=== PATIENT | male | born 1965 | race Caucasian/White ===

== ENCOUNTER 2024-11-14 07:39 | Outpatient (CLI) | payer BC, SELFPAY ==
--- NOTE | ~2024-11-14 | NM_ITS ---
EXAMINATION: NM armida stress w perfusion DATE: 11/14/2024 11:01 INDICATION: Unspecified atrial fibrillation TECHNIQUE: Rest images were obtained following intravenous administration of 11.5 mCi Tc99m tetrofosm in (Myoview). The patient was infused intravenously with Lexiscan (Regadenoson). Then, 33.7 mCi Tc99m tetrofosmin (Myoview) was administered intravenously, and stress images were obtained initially in t he supine position with repeat post stress images obtained in the prone position. Data was reconstruc peace into short axis and horizontal and vertical long axis SPECT images. Gated SPECT images were also obtained. COMPARISON: None. FINDINGS: There is a small to moderate-sized moderate severity nonreversible perfusion defect involvi ng the mid inferior and basilar inferior segments consistent with infarct. No reversible ischemia. T here is normal left ventricular chamber size, wall motion and ejection fraction. Left ventricular ej ection fraction measures 70%. IMPRESSION: 1. Small fixed perfusion defect consistent with infarct at the mid inferior and basilar inferior segm ents. No reversible ischemia. 2. Left ventricular ejection fraction measuring 70%. Reviewed, dictated and finalized at location A. IMPRESSION: 1. Small fixed perfusion defect consistent with infarct at the mid inferior and basilar inferior segments. No reversible ischemia. 2. Left ventricular ejection fraction measuring 70%.
--- OUTSIDE RECORDS SUMMARY | 2024-11-14 07:41 | XMS_ITS | Clinical Summary ---
Author Organization [facility] Address [address] [place] [id number] Care Team Providers Care Integrated Marketing Intern Name Role Phone Ramiro Fernandez MD Primary Care Provider [phone] Social History Tobacco Use Types Packs/Day Years Used Date Smoking Tobacco: Never Assessed Sex and Gender Information Value Date Recorded Sex Assigned at Not on file Legal Sex Male 7:34 PM CDT Gender Identity Not on file Sexual Orientation Not on file Last Filed Vital Signs Vital Sign Reading Time Taken Comments Blood Pressure 124/78 06/20/2012 3:35 PM GROUNDS CARETAKER Pulse 60 06/20/2012 3:35 PM GROUNDS CARETAKER Temperature - - Respiratory Rate - - Oxygen Saturation - - Inhaled Oxygen Concentration - - Weight 97.5 kg (215 lb) 06/20/2012 3:35 PM GROUNDS CARETAKER Height 185.4 cm (6' 1 ) 06/20/2012 3:35 PM GROUNDS CARETAKER Body Mass Index 28.37 06/20/2012 3:35 PM GROUNDS CARETAKER Plan of Treatment Health Maintenance Due Date Last Done Comments Colorectal Cancer Screening Colonoscopy (10 Years) 1965 Annual Physical 1966 Hepatitis C 1981 Zoster Vaccines (1 of 2) 2013 DTaP, Tdap and Td Vaccines ( 2 - Td or Tdap) 06/20/2022 06/20/2012 COVID-19 Vaccine (2 - 2023-2 5 season) 2024 10/24/2020 Influenza Adult (#1) 2024 06/20/2012 RSV Immunization or 60+ Years (1 - 1-dose 75+ series) 2038 Meningococcal B Vaccine Aged Out No l onger eligible based on patient's age to complete this topic Meningococcal Vaccine Aged Out No sarah naldo eligible based on patient's age to complete this topic Pneumococcal Vaccine: Pediat rics (0 to 5 Years) and At-Risk Patients (6 to 64 Years) Aged Out No longer eligi ble based on patient's age to complete this topic RSV Immunizations Under 20 Months Aged Out No longer eligible based on patient's age to complete this topic Insurance [facility] Care Teams Integrated Marketing Intern Relationship Specialty Start Date End Date Ramiro Fernandez MD [address] [place] [id number] PCP - General INTERNAL MEDICINE 08/18/21
--- OUTSIDE RECORDS SUMMARY | 2024-11-14 07:42 | XMS_ITS | Referral Summary ---
Author Organization [facility] Address [address] [place] [address] Care Team Providers Care Endoscopy Specialty Technician Name Role Phone Ramiro Fernandez MD Primary Care Provider [phone] Allergies Active Allergy Reactions Criticality Noted Date Comments Codeine Nausea only Low 07/28/2018 Medications VENTOLIN HFA 90 mcg/actuation inhaler as needed. 2 06/29/2018 Active mometasone-form oterol (DULERA 100) 100-5 mcg/actuation inhaler daily. Active esomeprazole DR (NexIUM) 20 mg capsule Take 20 mg by mouth daily. Active vit B comp no.[id number] otin 1-60-300 mg-mg-mcg tabletIndicatio ns:Vitamin Deficiency Prevention 1 tablet daily. Active multivit with minerals/lutein (MULTIVITAMIN 50 PLUS ORAL) Take by mouth Ac tive dilTIAZem (CARDIZEM) 30 mg tablet Take 1 tablet (30 mg total) by mouth 4 (four) times a day as needed (for elevated heart rates) 30 tablet 11 09/29/2022 Active aspirin 81 mg enteric coated tablet Take 81 mg by mouth daily Active dilTIAZem CD/XR/XT (dilTIAZem XR) 120 mg 24 hr capsule Take 1 capsule (120 mg total) by mouth daily 90 capsule 01/12/2023 Active Active Problems Problem Noted Date Diagnosed Date Persistent atrial fibrillation 09/29/2022 Atrial flutter 01/02/2016 Fatigue 01/02/2016 Palpitations 01/02/2016 Social History Tobacco Use Types Packs/Day Years Used Date Smoking Tobacco: Never Smokeless Tobacco: Current Chew Tobacco Cessation:Ready to Q uit: Not Asked; Counseling Given: Not Answered Personal Safety Answer Date Recorded Getting School Help Needed Not on file 10/18 Sex and Gender Information Value Date Recorded Sex Assigned at Not on file Legal Sex Male 8:22 AM COMEDIAN Gender Identity Not on file Sexual Orientation Not on file Last Filed Vital Signs Vital Sign Reading Time Taken Comments Blood Pressure 159/126 09/29/2022 10:33 AM COMEDIAN Pulse 81 09/29/2022 10:33 AM COMEDIAN Temperature 36.7 C (98 F) 11/03/2018 8:09 AM CDT Respiratory Rate - - Oxygen Saturation 98% 09/29/2022 10: 33 AM COMEDIAN Inhaled Oxygen Concentration - - Weight 110.1 kg (242 lb 12.8 oz) 2022 10:33 AM COMEDIAN Height 185.4 cm (6' 1 ) 09/29/2022 10:3 3 AM COMEDIAN Body Mass Index 32.03 09/29/2022 10:33 AM COMEDIAN Plan of Treatment Not on file Insurance [facility] ACC[facility] CHOICE Care Teams Endoscopy Specialty Technician Relationship Specialty Start Date End Date Ramiro Fernandez MD [address] [place] [id number] PCP - General 05/19/17
--- OUTSIDE RECORDS SUMMARY | 2024-11-14 07:42 | XMS_ITS | Clinical Summary ---
Author Organization [facility] Address [address] [place] [address] Care Team Providers Care Leg Man Name Role Phone Ramiro Fernandez MD Primary Care Provider [phone] Source Comments [facility],non-owned Affiliates and Associated Physician Practices is amultiple site organization consisting of ambulatory clinics and hospital sitesin [place], [place], [place] and [place]. This disclosure is being madepursuant to the Care Everywhere program and may not contain all information available regarding this patient. 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 08/26/2015 Diplopia 08/26/2015 Family History Medical History Relation Name Comments Strabismus Daughter Cancer Maternal Grandmother bone ca ncer Diabetes Mother Cancer Paternal Grandmother lung ca ncer Blindness Neg Hx Brain Tumor Neg Hx CVA Neg Hx Glaucoma Neg Hx Heart Disease Neg Hx Hypertension Neg Hx Retinal Detachment Neg Hx Relation Name Status Comments Daughter Maternal Grandmother Mother Paternal Grandmother Social History Tobacco Use Types Packs/Day Years Used Date Smoking Tobacco: Never Alcohol Use Standard Drinks/Week Comments Yes 0.8 (1 standard drink = 0.6 oz p ure alcohol) Sex and Gender Information Value Date Recorded Sex Assigned at Not on file Gender Identity Not on file Sexual Orientation Not on file Last Filed Vital Signs Vital Sign Reading Time Taken Comments Blood Pressure 140/86 10/29/2015 2:55 PM CDT Pulse 61 10/29/2015 2:55 PM CDT Temperature 36.6 C (97.9 F) 10/29/2015 2:55 PM CDT Respiratory Rate 16 10/29/2015 2:55 PM CDT Oxygen Saturation 95% 10/29/2015 2:55 PM CDT Inhaled Oxygen Concentration - - Weight 98.4 kg (217 lb) 10/29/2015 10:36 AM CDT Height 185.4 cm (6' 1 ) 10/29/2015 10:36 AM CDT Body Mass Index 28.63 10/29/2015 10:36 AM CDT Plan of Treatment Health Maintenance Due Date Last Done Comments COLOGUARD (AGES 45-75) - COL ON CA SCREENING 1963 COLON MONITORING 1963 COLONOSCOPY - COLON CA SCREENING 1963 CT COLONOGRAPHY - COLON CA SCREENING 1965 Colorectal Cancer Screening 1963 FIT - COLON CA SCREENING 1963 FLEX SIG - COLON CA SCREENING 1963 LIPID TESTING 1963 HIV SCREENING 1978 HEPATITIS C SCREENING 09/04/1981 DTAP/TDAP/TD VACCINES (1 - Tdap) 1982 PNEUMOCOCCAL VACCINE 50+ (1 of 1 - PCV) 2013 ZOSTER VACCINE (1 of 2) 2013 COVID-19 VACCINE (1 - 2023-2 5 season) 2024 INFLUENZA VACCINE (#1) 2024 DEPRESSION SCREENING 08/16/2024 Respiratory Syncytial Virus (RSV) Vaccine Pt: or over 60 yrs (1 - 1-dose 75+ series) 2038 HEPATITIS B VACCINE Aged Out No longe r eligible based on patient's age to complete this topic HIB VACCINE Aged Out No longer eligi ble based on patient's age to complete this topic HPV VACCINE Aged Out No longer eligi ble based on patient's age to complete this topic MENINGOCOCCAL (Group B) VACC INE SHARED DECISION-MAKING Aged Out No longer eligibl e based on patient's age to complete this topic MENINGOCOCCAL GROUPS A/C/Y/W VACCINE Aged Out No longer eligible b ased on patient's age to complete this topic PNEUMOCOCCAL VACCINE Aged Out No long er eligible based on patient's age to complete this topic Care Teams Leg Man Relationship Specialty Start Date End Date Ramiro Fernandez MD [address] [place] [address] [place] [id number] PCP - General 06/10/15
--- OUTSIDE RECORDS SUMMARY | 2024-11-14 07:42 | XMS_ITS | Clinical Summary ---
Author Organization [facility] Address [address] [place] [id number] Care Team Providers Care Switchgear Repairer Name Role Phone Ramiro Fernandez MD Primary Care Provider [phone] Allergies Active Allergy Reactions Criticality Noted Date Comments Codeine Nausea only Low 07/28/2018 Medications VENTOLIN HFA 90 mcg/actuation inhaler as needed. 2 06/29/2018 Active mometasone-form oterol (DULERA 100) 100-5 mcg/actuation inhaler daily. Active esomeprazole DR (NexIUM) 20 mg capsule Take 20 mg by mouth daily. Active vit B comp no.[id number] otin 1-60-300 mg-mg-mcg tabletIndicatio ns:Vitamin Deficiency Prevention [...] Atrial flutter 01/02/2016 Fatigue 01/02/2016 Palpitations 01/02/2016 Family History Medical History Relation Name Comments No Known Problems Father No Known Problems Mother Heart failure Paternal Grandfather Relation Name Status Comments Father Mother Paternal Grandfather Social History Tobacco Use Types Packs/Day Years Used Date Smoking Tobacco: Never Smokeless Tobacco: Current Chew Tobacco Cessation:Ready to Q uit: Not Asked; Counseling Given: Not Answered Personal Safety Answer Date Recorded Getting School Help Needed Not on file 10/18 Sex and Gender Information Value Date Recorded Sex Assigned at Not on file Legal 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 Gender Identity Not on file Sexual Orientation Not on file Obstetrics History Last Filed Vital Signs Vital Sign Reading Time Taken Comments Blood Pressure 159/126 09/29/2022 10:33 AM STUD DAIRY CATTLE FARMER Pulse 81 09/29/2022 10:33 AM STUD DAIRY CATTLE FARMER Temperature 36.7 C (98 F) 11/03/2018 8:09 AM CDT Respiratory Rate - - Oxygen Saturation 98% 09/29/2022 10: 33 AM STUD DAIRY CATTLE FARMER Inhaled Oxygen Concentration - - Weight 110.1 kg (242 lb 12.8 oz) 2022 10:33 AM STUD DAIRY CATTLE FARMER Height 185.4 cm (6' 1 ) 09/29/2022 10:3 3 AM STUD DAIRY CATTLE FARMER Body Mass Index 32.03 09/29/2022 10:33 AM STUD DAIRY CATTLE FARMER Plan of Treatment Health Maintenance Due Date Last Done Comments Colon Cancer Screening-Colonoscopy 1963 Depression Screening 1963 Hepatitis C Screening 1963 Prostate Cancer Screening-PSA 1963 DTaP/Tdap/Td Vaccine (1 - Tdap) 1974 Hepatitis B Screening 1981 Regular Well Visit/Exam 18-64 1981 Zoster Vaccine (1 of 2) 2013 Covid-19 Vaccine (2 - 2023-2 5 season) 2024 10/24/2020 Influenza Vaccine (#1) 2024 Pneumococcal vaccine <65 Aged Out No longer eligible based on patient's age to complete this topic Insurance [facility] ACCESS CHOICE Member Subscriber Plan / Payer (Ef fective 2021-Present) Name:Tl Mendiola Relation to Subscriber:Self Name:Tl Mendiola Payer ID:[id number] (NAIC) Type: [employer]IANCE Address: [facility] [id number] [place] [id number] Care Teams Switchgear Repairer Relationship Specialty Start Date End Date Ramiro Fernandez MD [address] [place] [id number] PCP - General 05/19/17
--- OUTSIDE RECORDS SUMMARY | 2024-11-14 07:42 | XMS_ITS | Encounter Summary ---
Author Organization [facility] Address [address] [place] [address] Phone Care Team Providers Care Recreation Therapy Director Name Role Phone Ramiro Fernandez MD Primary Care Provider [phone] Encounter Details Date Type Department Care Team (Late st Contact Info) Description 07/28/2018 Telephone 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
--- NOTE | 2024-11-14 07:47 | ECHO_ITS ---
Patient Info Name: Tl Mendiola Age: 59 years : 1965 Gender: Male Ht: 73 in Wt: 240 lbs BSA: 2.40 m2 HR: 75 bpm BP: 159 / 110 mmHg Heart Rhythm: Atrial Fibrillation Technical Quality: Fair Exam Date: 11/14/2024 8:01 AM Exam Location: Echo Lab Patient Status: Outpatient Admit Date: 11/14/2024 Staff Ordering Physician: Julio Vigil DO Sorter Upholstery Parts: Adair Stevenson Attending Provider: Julio Vigil DO Referring Physician: Musa HATFIELD; Exam Type: CA echo doppler color flow Study Info Indications - Afib Complete two-dimensional, color flow and Doppler transthoracic echocardiogram is performed. Summary 1. Complete two-dimensional, color flow and Doppler transthoracic echocardiogram is performed. 2. Left ventricular chamber dimension is normal. 3. Left ventricular systolic function is normal, estimated at 60-65%. 4. The left ventricular diastolic function is normal. 5. E/e' 6 is not elevated. 6. Atrial fibrillation. 7. Left atrial chamber dimension is severely enlarged. 8. Right atrial chamber dimension is mildly enlarged. 9. There is mild aortic valve sclerosis. 10. There is trace mitral valve regurgitation. 11. No pulmonary hypertension, estimated pulmonary arterial systolic pressure is 26 mmHg. Left Ventricle E/e' 6 is not elevated. Atrial fibrillation. Left ventricular chamber dimension is normal. Left ventricular systolic function is normal, estimated at 60-65%. The left ventricular diastolic function is normal. Right Ventricle Right ventricular systolic function is normal and with normal TAPSE 2.0 cm. Right ventricular chamber dimension is normal. Left Atria Left atrial chamber dimension is severely enlarged. Right Atria Right atrial chamber dimension is mildly enlarged. Aortic Valve The aortic valve is trileaflet. There is mild aortic valve sclerosis. There is no aortic valve stenosis. There is no aortic valve regurgitation. Pulmonic Valve There is no pulmonic regurgitation. Mitral Valve There is no mitral valve stenosis. There is trace mitral valve regurgitation. Tricuspid Valve There is no tricuspid valve regurgitation. No pulmonary hypertension, estimated pulmonary arterial systolic pressure is 26 mmHg. Pericardium/Pleural There is no pericardial effusion. Inferior Vena Cava Normal inferior vena cava with >50% collapse upon inspiration consistent with normal right atrial pressure, 5 mmHg. Aorta The aortic root size at the sinus of Valsalva is normal. Left Ventricular Outflow Tract Name Value Normal LVOT 2D LVOT Diameter 2.0 cm LVOT Doppler LVOT Peak Gradient 2 mmHg LVOT Mean Gradient 1 mmHg LVOT VTI 15 cm LVOT VTI/AV VTI Ratio 0.8 LVOT Stroke Volume 48 ml LVOT CO 3.3 l/min LVOT CI 1.4 l/min/m2 Pulmonic Valve Name Value Normal RVOT Doppler RVOT Peak Gradient 1 mmHg PV Doppler PV Peak Gradient 3 mmHg Mitral Valve Name Value Normal MV Doppler MV Decel Becker 252 cm/s2 MV PHT 79 ms MV Area (PHT) 2.8 cm2 4.0-5.0 MV Diastolic Function MV E Peak Velocity 68 cm/s MV A Peak Velocity 1 cm/s MV E/A 51.7 MV Decel Time 272 ms MV Annular TDI MV E/e' (Septal) 5.5 <=8.0 MV E/e' (Lateral) 6.9 <=8.0 MV E/e' (Average) 6.2 Tricuspid Valve Name Value Normal TV Regurgitation Doppler TR Peak Velocity 227 cm/s TR Peak Gradient 18 mmHg Estimated PAP/RSVP RA Pressure 5 mmHg <=5 PA Systolic Pressure 26 mmHg <36 RV Systolic Pressure 26 mmHg <36 Aorta Name Value Normal Ascending Aorta Ao Root Diameter (MM) 3.7 cm Ao Root Diam Index (MM) 1.6 cm/m2 Aortic Valve Name Value Normal AV Doppler AV Peak Velocity 99 cm/s AV Peak Gradient 3 mmHg AV Mean Gradient 2 mmHg AV VTI 18 cm AV Area (Cont Eq VTI) 2.6 cm2 >=3.0 AV Area (Cont Eq Shaun) 2.7 cm2 AV Regurgitation 2D LVOT Area 3.1 cm2 Ventricles Name Value Normal LV Dimensions 2D/MM IVS Diastolic Thickness (2D) 1.1 cm 0.6-1.0 LVID Diastole (2D) 5.4 cm 4.2-5.8 LVIW Diastolic Thickness (2D) 1.1 cm 0.6-1.0 LVID Systole (2D) 3.2 cm 2.5-4.0 LVOT Diameter 2.0 cm LV Mass (2D Cubed) 235.82 g 88.00-224.00 LV Mass Index (2D Cubed) 98 g/m2 49-115 Relative Wall Thickness (2D) 0.42 LV Fractional Shortening/Ejection Fraction 2D/MM LV Fractional Shortening (2D) 40 % 25-43 LV EF (2D Teicholz) 70 % 52-72 LV Diastolic Volume (4C MOD) 103 ml LV EF (4C MOD) 61 % LV Diastolic Volume (2C MOD) 114 ml LV EF (2C MOD) 61 % LV Diastolic Volume (BP MOD) 109 ml 62-150 LV Diastolic Volume Index (BP MOD) 45 ml/m2 34-74 LV Systolic Volume (BP MOD) 43 ml 21-61 LV Systolic Volume Index (BP MOD) 18 ml/m2 11-31 LV EF (BP MOD) 61 % 52-72 LV Diastolic Length (4C) 8.4 cm LV Systolic Length (4C) 7.3 cm LV Stroke Volume (4C MOD) 63 ml Atria Name Value Normal LA Dimensions LA Dimension (MM) 5.9 cm 3.0-4.1 LA Volume (4C A-L) 105 ml LA Volume (BP A-L) 124 ml RA Dimensions RA Area (4C) 22.1 cm2 <=18.0 Report Signatures
--- NOTE | 2024-11-14 07:47 | EST_ITS ---
Patient Info Name: Tl Mendiola Age: 59 years : 1965 Gender: Male Ht: 73 in Wt: 240 lbs BSA: 2.40 m2 HR: 69 bpm BP: 157 / 110 mmHg Exam Date: 11/14/2024 10:02 AM Exam Location: Echo Lab Patient Status: Outpatient Admit Date: 11/14/2024 Staff Ordering Physician: Julio Vigil DO Attending Provider: Julio Vigil DO Exercise Technologist: rashel joyner Exercise Physician: Julio Vigil DO Exam Type: CA stress armida w NM Study Info Indications I48.1 - Persistent atrial fibrillation A regadenoson stress test was performed. Summary 1. 1. Negative lexiscan stress test for ischemic ST changes by ECG criteria. 2. 2. Baseline hypertension. 3. 3. Nuclear scan to follow and will be reported separately. Please correlate with it. 4. 4. Patient informed of the above results. Protocol: Lexiscan Stress ECG Details Stage: REST Duration (min): 0 min : 43 sec HR (bpm): 61 SBP (mmHg): --- DBP (mmHg): --- Stage: REST Duration (min): 15 min : 57 sec HR (bpm): 71 SBP (mmHg): 157 DBP (mmHg): 110 Stage: STAGE 1 Duration (min): 1 min : 0 sec HR (bpm): 83 SBP (mmHg): 167 DBP (mmHg): 114 Stage: RECOVERY Duration (min): 1 min : 0 sec HR (bpm): 86 SBP (mmHg): 167 DBP (mmHg): 114 Stage: RECOVERY Duration (min): 2 min : 0 sec HR (bpm): 80 SBP (mmHg): 167 DBP (mmHg): 114 Stage: RECOVERY Duration (min): 3 min : 0 sec HR (bpm): 80 SBP (mmHg): 161 DBP (mmHg): 108 Stage: RECOVERY Duration (min): 3 min : 21 sec HR (bpm): 74 SBP (mmHg): 161 DBP (mmHg): 108 Rest HR: 71 bpm Peak HR: 99 bpm Rest Sys BP: 157 mmHg Peak Sys BP: 167 mmHg Max Pred HR: 159 bpm % Max Pred HR: 62 % Target HR: 135 bpm Max RPP: 16,533 bpm*mmHg Termination Reason: Completed protocol Cardiac Symptoms: Shortness of breath Total Time: 1 min : 0 sec Rest Brown BP: 110 mmHg Peak Brown BP: 114 mmHg Total Dose: 0.4 mg Resting ECG Atrial fibrillation. Stress ECG No ST changes. Arrhythmias No other arrhythmias. Report Signatures
== END 2024-11-14 07:40 | disposition home or self-care (01) ==
PROVIDERS: PCP Physician Assistant Medical; Visit Provider Internal Medicine Cardiovascular Disease
DX: I48.91 Unspecified atrial fibrillation (principal); R94.39 Abnormal result of other cardiovascular function study; I10 Essential (primary) hypertension; I35.8 Other nonrheumatic aortic valve disorders
CPT/HCPCS: 78452; 93017; 93306; A9502; J2785